=== PATIENT | male | born 1935 | race Caucasian/White ===

== ENCOUNTER 2017-10-06 09:34 | Inpatient (IN) | payer MEDICAID ==
[~2017-10-06] VITALS: Ht 177.8 cm; Wt 76.2 kg
[2017-10-06 10:50] LABS: BASOPHIL % 0.4 % (0-2); PLATELET COUNT 197 x10^3mcL (130-400); RED CELL DISTRIBUTION WIDTH 12.4 % (11.5-14.5)
[2017-10-06 10:51] LABS: UA SPECIFIC GRAVITY 1.015 (1.005-1.035); microscopic required? YES; urine erythrocyte NEGATIVE (NEGATIVE)
[2017-10-06 11:35] LABS: CALCIUM 8.4 mg/dL (8.5-10.1); CARBON DIOXIDE 26.8 mmol/L (21-32); CHLORIDE SERUM 105 mmol/L (98-107); CREATININE SERUM 1.1 mg/dL (0.7-1.3); GLUCOSE SERUM 127 mg/dL (74-106); POTASSIUM SERUM 3.6 mmol/L (3.5-5.1); SODIUM SERUM 142 mmol/L (136-145)
[2017-10-06 11:39] LABS: ALKALINE PHOSPHATASE 76 U/L (46-116); ALT/SGPT 39 U/L (16-63); AMYLASE 47 U/L (25-115); AST/SGOT 21 U/L (15-37); BILIRUBIN TOTAL 0.61 mg/dL (0.20-1.00); HDL CHOLESTEROL 37 mg/dL (40-60); LIPASE 182 IU/L (73-393); MAGNESIUM 1.9 mg/dL (1.8-2.4); T4(THYROXINE) 4.9 ug/dL (4.7-13.3); TOTAL PROTEIN, SERUM 6.9 g/dL (6.4-8.2)
[2017-10-06 11:40] LABS: ALBUMIN 3.3 g/dL (3.4-5.0); CHOLESTEROL 134 mg/dL (<200)
[2017-10-07 05:18] LABS: BASOPHIL % 0.6 % (0-2); PLATELET COUNT 204 x10^3mcL (130-400); RED CELL DISTRIBUTION WIDTH 12.6 % (11.5-14.5)
[2017-10-07 05:34] LABS: CALCIUM 8.3 mg/dL (8.5-10.1); CARBON DIOXIDE 28.9 mmol/L (21-32); CHLORIDE SERUM 108 mmol/L (98-107); CREATININE SERUM 1.1 mg/dL (0.7-1.3); GLUCOSE SERUM 107 mg/dL (74-106); MAGNESIUM 2.2 mg/dL (1.8-2.4); POTASSIUM SERUM 4.1 mmol/L (3.5-5.1); SODIUM SERUM 142 mmol/L (136-145)
[2017-10-07 08:59] VITALS: BP 140/79
[2017-10-07 12:38] VITALS: BP 122/77
[2017-10-07 16:48] VITALS: BP 107/59
[2017-10-07 19:09] VITALS: BP 116/76
[2017-10-07 19:46] LABS: microscopic required? NO
[2017-10-07 19:50] LABS: UA SPECIFIC GRAVITY 1.015 (1.005-1.035); urine erythrocyte NEGATIVE (NEGATIVE)
[2017-10-07 23:05] VITALS: BP 113/79
[2017-10-08 03:06] VITALS: BP 130/66
[2017-10-08 05:48] LABS: CALCIUM 7.7 mg/dL (8.5-10.1); CARBON DIOXIDE 25.9 mmol/L (21-32); CHLORIDE SERUM 107 mmol/L (98-107); GLUCOSE SERUM 96 mg/dL (74-106); PHOSPHOROUS 2.9 mg/dL (2.5-4.9); POTASSIUM SERUM 3.7 mmol/L (3.5-5.1); SODIUM SERUM 139 mmol/L (136-145)
[2017-10-08 06:06] LABS: BASOPHIL % 0.3 % (0-2); PLATELET COUNT 201 x10^3mcL (130-400); RED CELL DISTRIBUTION WIDTH 12.8 % (11.5-14.5)
[2017-10-08 07:30] VITALS: BP 146/77
[2017-10-08 11:38] VITALS: BP 121/69
[2017-10-08 16:00] VITALS: BP 88/56
[2017-10-08 17:50] VITALS: BP 142/74
[2017-10-08 20:25] VITALS: BP 133/63
[2017-10-09 05:55] VITALS: BP 113/65
[2017-10-09 06:35] LABS: BASOPHIL % 0.4 % (0-2); PLATELET COUNT 201 x10^3mcL (130-400); RED CELL DISTRIBUTION WIDTH 12.9 % (11.5-14.5)
[2017-10-09 06:52] LABS: CALCIUM 8.7 mg/dL (8.5-10.1); CARBON DIOXIDE 25.5 mmol/L (21-32); CHLORIDE SERUM 106 mmol/L (98-107); GLUCOSE SERUM 105 mg/dL (74-106); PHOSPHOROUS 3.2 mg/dL (2.5-4.9); SODIUM SERUM 141 mmol/L (136-145)
[2017-10-09 08:48] VITALS: BP 127/68
[2017-10-09 13:40] VITALS: BP 127/68
[2017-10-09 13:53] VITALS: BP 107/60
== END 2017-10-09 16:24 | disposition home or self-care (01) | DRG 201 ==
LOC: ED 09:34 → CANBEDREQ 14:01 → DU 10-07 07:28 → IC 10-07 07:28 → IW 10-07 07:28 → DU 10-07 08:04
PROVIDERS: Emergency Medicine; Family Medicine; Internal Medicine
DX: I44.1 Atrioventricular block, second degree (principal); N17.0 Acute kidney failure with tubular necrosis; B69.0 Cysticercosis of central nervous system; E44.1 Mild protein-calorie malnutrition; R73.03 Prediabetes; Z90.49 Acquired absence of other specified parts of digestive tract; Z95.0 Presence of cardiac pacemaker
CPT/HCPCS: 82962; 83880; J7030; J8597; Q0092

== ENCOUNTER 2018-02-27 05:33 | Emergency (ER) | payer OTHER ==
[~2018-02-27] VITALS: Ht 175.3 cm; Wt 80.8 kg
[2018-02-27 06:46] LABS: BASOPHIL % 0.3 % (0-2); PLATELET COUNT 202 x10^3mcL (130-400); RED CELL DISTRIBUTION WIDTH 12.4 % (11.5-14.5)
[2018-02-27 07:00] LABS: CALCIUM 8.3 mg/dL (8.5-10.1); CARBON DIOXIDE 26.3 mmol/L (21-32); CHLORIDE SERUM 101 mmol/L (98-107); CREATININE SERUM 1.2 mg/dL (0.7-1.3); GLUCOSE SERUM 122 mg/dL (74-106); SODIUM SERUM 136 mmol/L (136-145)
[2018-02-27 07:24] LABS: UA SPECIFIC GRAVITY <=1.005 (1.005-1.035); microscopic required? YES; urine erythrocyte 3+ (NEGATIVE)
[2018-02-27 08:08] VITALS: BP 130/76
== END 2018-02-27 08:08 | disposition home or self-care (01) ==
LOC: ED 05:33
PROVIDERS: Emergency Medicine
DX: R33.9 Retention of urine, unspecified (principal)
CPT/HCPCS: 36415

== ENCOUNTER 2018-03-01 10:50 | Emergency (ER) | payer OTHER ==
[~2018-03-01] VITALS: Ht 175.3 cm; Wt 77.6 kg
[2018-03-01 10:55] VITALS: Ht 175.3 cm; Wt 77.6 kg
[2018-03-01 12:09] VITALS: BP 126/74
== END 2018-03-01 12:09 | disposition home or self-care (01) ==
LOC: ED 10:50
DX: Z46.6 Encounter for fitting and adjustment of urinary device (principal)

== ENCOUNTER 2018-05-16 22:09 | Inpatient (IN) | payer OTHER ==
[~2018-05-16] VITALS: Ht 170.2 cm; Wt 76.2 kg
[2018-05-16 22:14] VITALS: Ht 170.2 cm; Wt 76.2 kg
[2018-05-16 22:48] LABS: BASOPHIL % 0.6 % (0-2); PLATELET COUNT 256 x10^3mcL (130-400); RED CELL DISTRIBUTION WIDTH 12.7 % (11.5-14.5)
[2018-05-16 23:03] LABS: CALCIUM 8.8 mg/dL (8.5-10.1); CARBON DIOXIDE 25.2 mmol/L (21-32); CHLORIDE SERUM 104 mmol/L (98-107); GLUCOSE SERUM 106 mg/dL (74-106); POTASSIUM SERUM 3.8 mmol/L (3.5-5.1); SODIUM SERUM 139 mmol/L (136-145)
[2018-05-16 23:08] LABS: ALBUMIN 3.5 g/dL (3.4-5.0); ALKALINE PHOSPHATASE 100 U/L (46-116); ALT/SGPT 49 U/L (16-63); AST/SGOT 32 U/L (15-37); BILIRUBIN TOTAL 0.6 mg/dL (0.20-1.00); TOTAL PROTEIN, SERUM 7.7 g/dL (6.4-8.2)
[2018-05-17 00:44] VITALS: BP 144/65
[2018-05-17 05:18] VITALS: BP 114/72
[2018-05-17 05:45] LABS: BASOPHIL % 0.3 % (0-2); PLATELET COUNT 226 x10^3mcL (130-400); RED CELL DISTRIBUTION WIDTH 12.7 % (11.5-14.5)
[2018-05-17 06:19] LABS: ALKALINE PHOSPHATASE 84 U/L (46-116); ALT/SGPT 42 U/L (16-63); AST/SGOT 29 U/L (15-37); BILIRUBIN TOTAL 0.67 mg/dL (0.20-1.00); CALCIUM 8.7 mg/dL (8.5-10.1); CARBON DIOXIDE 26.3 mmol/L (21-32); CHLORIDE SERUM 107 mmol/L (98-107); GLUCOSE SERUM 106 mg/dL (74-106); MAGNESIUM 2.1 mg/dL (1.8-2.4); PHOSPHOROUS 3.5 mg/dL (2.5-4.9); SODIUM SERUM 141 mmol/L (136-145); TOTAL PROTEIN, SERUM 6.7 g/dL (6.4-8.2)
[2018-05-17 09:22] VITALS: BP 113/60
[2018-05-17 12:43] VITALS: BP 127/67
[2018-05-17 17:33] VITALS: BP 120/59; BP 128/68
[2018-05-17 21:38] VITALS: BP 112/62
[2018-05-18 05:18] VITALS: BP 108/65
[2018-05-18 07:20] LABS: BASOPHIL % 0.3 % (0-2); PLATELET COUNT 227 x10^3mcL (130-400); RED CELL DISTRIBUTION WIDTH 12.9 % (11.5-14.5)
[2018-05-18 07:36] LABS: CALCIUM 9.1 mg/dL (8.5-10.1); CARBON DIOXIDE 26.5 mmol/L (21-32); CHLORIDE SERUM 104 mmol/L (98-107); GLUCOSE SERUM 99 mg/dL (74-106); MAGNESIUM 2.1 mg/dL (1.8-2.4); POTASSIUM SERUM 3.6 mmol/L (3.5-5.1); SODIUM SERUM 140 mmol/L (136-145)
[2018-05-18 10:02] VITALS: BP 100/54
[2018-05-18 14:00] VITALS: BP 108/61
[2018-05-18 16:45] VITALS: BP 112/54
[2018-05-18 20:37] VITALS: BP 119/57
[2018-05-19 05:29] VITALS: BP 108/59
[2018-05-19 06:10] LABS: BASOPHIL % 0.5 % (0-2); PLATELET COUNT 227 x10^3mcL (130-400)
[2018-05-19 06:30] LABS: CALCIUM 9.1 mg/dL (8.5-10.1); CARBON DIOXIDE 25.2 mmol/L (21-32); CHLORIDE SERUM 104 mmol/L (98-107); CREATININE SERUM 1.1 mg/dL (0.7-1.3); GLUCOSE SERUM 100 mg/dL (74-106); MAGNESIUM 2.2 mg/dL (1.8-2.4); SODIUM SERUM 139 mmol/L (136-145)
[2018-05-19 09:11] VITALS: BP 115/62
[2018-05-19 12:53] VITALS: BP 109/66
[2018-05-19] MEDS ORDERED: PROA PO (13:21)
[2018-05-19 13:25] VITALS: BP 109/66
== END 2018-05-19 13:59 | disposition home health service (06) | DRG 201 ==
LOC: ED 22:09 → DU 05-17 00:01
PROVIDERS: Emergency Medicine; Internal Medicine Pulmonary Disease; ADMIT Internal Medicine Pulmonary Disease
PROC: 3E0234Z Introduction of Serum, Toxoid and Vaccine into Muscle, Percutaneous Approach (ICD-10-PCS; principal; 2018-05-17)
DX: I44.1 Atrioventricular block, second degree (principal); F41.9 Anxiety disorder, unspecified; I10 Essential (primary) hypertension; I25.10 Atherosclerotic heart disease of native coronary artery without angina pectoris; I95.1 Orthostatic hypotension; Z23 Encounter for immunization
CPT/HCPCS: 83880; 90732; J1644; J7030; Q0092